=== PATIENT | female | born 1970 | race Caucasian/White ===

== ENCOUNTER 2017-11-20 20:27 | Emergency (ER) | payer OTHER ==
[2017-11-20 20:40] VITALS: BP 147/107; TEMP 98.2; O2SAT 100
--- NOTE | 2017-11-20 20:40 | ED.PDOC ---
History of Present Illness - General Chief Complaint: Upper Extremity Injury Stated Complaint: fell on rocks injured left shoulder Time Seen by Provider: 11/20/17 20:38 Source: patient - History of Present Illness Initial Comments: THE PATIENT WAS NOTED TO BE AT THE [place] WITH FRIENDS WHEN SHE TRIPPED AND FELL ONTO HER RIGHT SHOULDER. THE PATIENT DENIES OTHER INJURIES AND STATES THAT SHE WAS CONCERNED SHE DISLOCATED HER SHOULDER WHICH IS WHY SHE IS IN THE ED TO BE EVALUATED. Occurred: just prior to arrival Pain - Upper Extremity: moderate: Shoulder, left Method of Injury: direct blow Improving Factors: movement Worsening Factors: immobilization Allergies/Adverse Reactions: Allergies NO KNOWN ALLERGY Allergy (Verified 11/20/17 20:40) Home Medications: Ambulatory Orders Levothyroxine Sodium [Synthroid] 75 mcg PO DAILY 11/20/17 Review of Systems - Review of Systems Genitourinary: States: see HPI All other Systems: Reviewed and Negative Past Medical History (General) - Patient Medical History Hx of COPD: No Hx Pacemaker: No Family Medical History - Family History Mother Family History: Unknown Physical Exam - Physical Exam General Appearance: Alert, Comfortable Eyes, Ears, Nose, Throat Exam: PERRL/EOMI Neck: non-tender, full range of motion Cardiovascular/Respiratory: regular rate, rhythm Back Exam: normal inspection Shoulder Exam: normal inspection, limited ROM, pain, soft tissue tenderness Elbow/Forearm Exam: normal inspection, non-tender Wrist Exam: normal inspection, non-tender Hand Exam: normal inspection, non-tender Neuro/Tendon: normal sensation, normal motor functions Mental Status: alert, oriented x 3 Skin Exam: normal color Progress - Progress Progress: 11/20/17 20:41 MDM PATIENT PRESENTATION APPEARS TO BE CONSISTENT WITH INJURIES DUE TO TRAUMA. WILL ORDER IMAGING OF AREAS THAT WERE INJURED(SHOULDER) TO EVALUATE FOR EMERGENT PATHOLOGY IN THESE AREAS. IF NOTHING EMERGENT FOUND, DISPO WILL BE HOME. 11/20/17 21:18 THE PATIENT IS CLINICALLY SOBER, FREE FROM DISTRACTING INJURY, APPEARS TO HAVE INTACT INSIGHT AND JUDGMENT AND REASON AND IN MY OPINION HAS THE CAPACITY TO MAKE DECISIONS. I HAVE EXPLAINED TO PATIENT THAT I AM CONCERNED THAT THIS MAY REPRESENT A POTENTIAL LIFE THREATENING CONDITION, THEY HAVE VERBALIZED AN UNDERSTANDING OF MY CONCERNS. I HAVE TOLD THE PATIENT I AM CLINICALLY CONCERNED ABOUT CLAVICLE FX WELL INTRATHORACIC PATHOLOGY, AND I HAVE DISCUSSED THE NEED FOR FURTHER EVALUATION TO GET MORE INFORMATION ABOUT POTENTIAL CAUSES OF THE PATIENTS SYMPTOMS. INFORMED OF REASONABLY FORESEEABLE COMPLICATIONS INCLUDING AND DISABILITY, LOSS OF VISION, FERTILITY. I HAVE OFFERED TO GIVE THE PATIENT MORE MEDICATION, AND STAY FOR FURTHER EVALUATION. I HAVE DISCUSSED THESE CONCERNS WITH PT'S RN IN THE ROOM. THE PATIENT IS NOT WILLING TO STAY FOR FURTHER EVALUATION, SHE IS UNWILLING TO STAY OVERNIGHT FOR MONITORING. SHE IS REFUSING ANY FURTHER CARE AND IS LEAVING AGAINST MY MEDICAL RECOMMENDATIONS. I HAVE ASKED HER TO RETURN SOON POSSIBLE TO COMPLETE HER EVALUATION. I HAVE ANSWERED ALL OF HER QUESTIONS. - Additional EKG/XRAY/Consults XRAY #2: SHOULDER Comments: CLAVICLE FX NOTED. Departure - Departure Clinical Impression: Clavicle fracture Qualifiers: Encounter type: initial encounter Clavicle location: lateral end Fracture type : closed Fracture alignment: displaced Laterality: left Qualified Code(s): S42.032A - Displaced fracture of lateral end of left clavicle, initial encounter for closed fracture Shoulder pain, acute Qualifiers: Laterality: left Qualified Code(s): M25.512 - Pain in left shoulder Disposition: Left Against Medical Advice Condition: Fair Departure Forms: ED Discharge - Pt. Copy, Patient Portal Self Enrollment Home Medications: Ambulatory Orders Levothyroxine Sodium [Synthroid] 75 mcg PO DAILY 11/20/17
--- NOTE | 2017-11-20 22:06 | RAD ---
EXAM DESCRIPTION: Shoulder,Left 2 or More Views CLINICAL HISTORY: 47 years Female, TRAUMA COMPARISON: None. FINDINGS: There is an acute, comminuted, mildly displaced fracture of the lateral left clavicle. No obvious acute fracture involving the proximal left humerus or glenoid. No dislocation. Acromioclavicular and coracoclavicular intervals appear normal. Surrounding soft tissues are unremarkable. Visualized lungs are clear. IMPRESSION: 1. Acute, comminuted fracture of the left lateral clavicle. 2. No obvious acute fracture involving the left humerus or glenoid. Electronically signed by: Rishabh Ca MD 11/20/2017 10:04 PM CDT
== END 2017-11-20 21:29 | disposition left against medical advice (07) ==
LOC: ER 20:27
DX: S42.032A Displaced fracture of lateral end of left clavicle, initial encounter for closed fracture (principal); W01.0XXA Fall on same level from slipping, tripping and stumbling without subsequent striking against object, initial encounter; Y92.828 Other wilderness area as the place of occurrence of the external cause